=== PATIENT | male | born 1955 | race Caucasian/White ===

== ENCOUNTER → 2019-10-17 | Outpatient (CLI) | payer OTHER, MEDICARE | LOC: SJCVC 10:56 | DX: R93.1 Abnormal findings on diagnostic imaging of heart and coronary circulation (principal); R06.09 Other forms of dyspnea; I10 Essential (primary) hypertension; E78.5 Hyperlipidemia, unspecified; R73.02 Impaired glucose tolerance (oral); F17.200 Nicotine dependence, unspecified, uncomplicated; K21.9 Gastro-esophageal reflux disease without esophagitis; E66.9 Obesity, unspecified; Z79.899 Other long term (current) drug therapy; Z82.49 Family history of ischemic heart disease and other diseases of the circulatory system ==

== ENCOUNTER → 2019-11-02 | Outpatient (CLI) | payer OTHER, MEDICARE | LOC: SJCVCIMAG 08:07 | DX: I35.8 Other nonrheumatic aortic valve disorders (principal); I25.10 Atherosclerotic heart disease of native coronary artery without angina pectoris; I10 Essential (primary) hypertension ==

== ENCOUNTER 2019-12-03 17:35 | Emergency (ER) | payer OTHER, MEDICARE ==
[~2019-12-03] VITALS: Ht 170.2 cm; Wt 90.7 kg
[2019-12-03 19:23] VITALS: BP 142/78
== END 2019-12-03 19:23 | disposition home or self-care (01) ==
LOC: ER 17:35
DX: S01.01XA Laceration without foreign body of scalp, initial encounter (principal); Z87.891 Personal history of nicotine dependence; W22.8XXA Striking against or struck by other objects, initial encounter; Y93.89 Activity, other specified; Y92.89 Other specified places as the place of occurrence of the external cause; Y99.8 Other external cause status

== ENCOUNTER → 2020-01-04 | Outpatient (CLI) | payer OTHER, MEDICARE | LOC: SJCVCIMAG 09:19 | PROVIDERS: ATTEND Internal Medicine | DX: I65.23 Occlusion and stenosis of bilateral carotid arteries (principal); R93.1 Abnormal findings on diagnostic imaging of heart and coronary circulation; R06.09 Other forms of dyspnea; I10 Essential (primary) hypertension; E78.5 Hyperlipidemia, unspecified; R73.02 Impaired glucose tolerance (oral); F17.200 Nicotine dependence, unspecified, uncomplicated ==

== ENCOUNTER → 2020-07-16 | Outpatient (CLI) | payer OTHER, MEDICARE | LOC: SJCVC 11:27 | PROVIDERS: ATTEND Internal Medicine | DX: R94.31 Abnormal electrocardiogram [ECG] [EKG] (principal); R93.1 Abnormal findings on diagnostic imaging of heart and coronary circulation; R06.00 Dyspnea, unspecified; I11.9 Hypertensive heart disease without heart failure; E78.5 Hyperlipidemia, unspecified; R73.02 Impaired glucose tolerance (oral); K22.70 Barrett's esophagus without dysplasia; K21.9 Gastro-esophageal reflux disease without esophagitis; E66.9 Obesity, unspecified; F17.210 Nicotine dependence, cigarettes, uncomplicated; Z79.899 Other long term (current) drug therapy; Z72.89 Other problems related to lifestyle ==

== ENCOUNTER → 2020-08-02 | Outpatient (CLI) | payer OTHER, MEDICARE ==
[~2020-08-02] MED LIST: BYSTOLIC 5 MG5 MG PO; FISH OIL 1,2001 EAC8 PO; LANSOPRAZOLE30 MG PO; LISINOPRIL20 MG PO; NORVASC5 MG PO; PRAVASTATIN SOD80 MG PO; TRAZODONE HCL100 MG PO; VITAMIN D3125 MC1 PO; ZETIA10 MG PO
== END ==
LOC: LAB 09:39
PROVIDERS: ATTEND Specialist
DX: Z01.812 Encounter for preprocedural laboratory examination (principal); Z20.822 Contact with and (suspected) exposure to COVID-19

== ENCOUNTER → 2020-08-07 | Outpatient (CLI) | payer OTHER, MEDICARE ==
[~2020-08-07] VITALS: Ht 170.2 cm; Wt 80.7 kg
--- NOTE | 2020-08-12 12:50 | P ---
[facility] [place] [address] PROCEDURE REPORT Name: KELSEY HO Room #: REG BRITT Brito#: [id number] Admission: 08/07/20 Attend Phys: Elvis Rangel Discharge: Date of : 53 Report #: [id number] THIS REPORT FOR: cc: Michael Dunlap MD, Stanley P. MD McElhinney, Christian C. MD ~ DATE OF SERVICE: 08/07/2020 PROCEDURE PERFORMED: Upper endoscopy with biopsies. HISTORY OF PRESENT ILLNESS: The patient is a 65-year-old male with intermittent dysphagia and weight loss. He has had a poor appetite. He states he has lost approximately 33 pounds in the last several months. He is on Prevacid on a daily basis. Denies any significant heartburn. He does complain of early satiety, also some nausea and vomiting. He has a previous history of Perez's esophagus with low-grade dysplasia, who underwent esophageal ablation by my partner in the past. His last upper endoscopy was on 07/13/2013. This was after his ablation, biopsies near the GE junction were obtained. These biopsies were negative for Perez's esophagus. Recommendation on the path report was for followup in 6 months. No other upper endoscopies in our records are seen. Plan is for upper endoscopy today. DESCRIPTION OF PROCEDURE: The risks and benefits of the procedure were explained to the patient, those risks including but not limited to bleeding, perforation and the risk of sedation. He understood these risks and gave informed consent. Sedation was given using propofol per anesthesia. Next, using a standard Olympus upper endoscope, the scope was placed in the patient's mouth and advanced under direct vision through the esophagus, stomach and into the second portion of the duodenum. The larynx was normal in appearance. Proximal esophagus was normal. A large malignant appearing mass near obstructing was noted starting at 32 cm and extending to the GE junction at 40 cm. The tissue was very friable. I was able to pass the scope through this area with a mild resistance. Multiple biopsies were obtained. In the stomach on retroflexion, a large mass was noted in the gastric cardia and again at the GE junction, this was approximately 3 cm in size. This appears to be the same mass that involves the esophagus. Biopsies of the high cardia were also obtained. The gastric mucosa in the body and antrum were normal. The pylorus was normal and patent. The duodenal bulb, first and second portion were all normal. At this point, the scope was then withdrawn and the procedure terminated. The patient tolerated the procedure well. IMPRESSION: Large malignant-appearing, near obstructing mass in the mid to distal esophagus, also involving the gastric cardia ____ the esophagus was approximately 8 cm. Multiple biopsies were obtained in the esophagus as well as at the gastric cardia. [facility] [address] [place] [address] PROCEDURE REPORT Name: KELSEY HO Husam Room #: REG BRITT Brito#: [id number] Admission: 08/07/20 Attend Phys: Elvis Rangel Discharge: Date of : 53 Report #: [id number] RECOMMENDATIONS: 1. Await biopsy results. 2. We will proceed with CT scan of the chest, abdomen and pelvis. 3. We will consult Oncology for further recommendations and evaluation. Thank you for allowing me to participate in his care. <ELECTRONICALLY SIGNED> By: Elvis Rivera MD 08/12/20 1250 0947 1028 Elvis Rivera MD /nt
--- NOTE | 2020-08-13 12:07 | PATH ---
[facility] [address] [place] [address] PATHOLOGY RPT PROCEDURE Name: RHOAN LAW Room #: REG BRITT Brito#: [id number] Admission: 08/07/20 Date of : 53 Discharge: Report #: [id number] Path Case #: [id number] LCA Accession Number: [id number] . 01 Material submitted: . PART A: esophagus - BIOPSY ESOPHAGEAL MASS PART B: gastrointestinal site - BIOPSY GASTRIC CARDIA MASS . 01 Clinical history: . ESOPHAGEAL MASS REFLUX . 02 Diagnosis: A. Esophageal mass, endoscopic biopsy: - POORLY DIFFERENTIATED ADENOCARCINOMA. - Specialized columnar epithelium (gastric fundic-type mucosa) with intestinal metaplasia consistent with Perez's metaplasia present within the background. . B. Gastric mucosa, gastric cardia mass, endoscopic biopsy: - POORLY DIFFERENTIATED ADENOCARCINOMA. - Negative for Helicobactor pylori (properly controlled immunohistochemical stain performed on block B). (IUV:latasha; 08/12/2020) QMS 08/12/2020 1103 Local . 02 Comment: Examination of the "esophageal mass" and "gastric cardia mass" shows a poorly differentiated adenocarcinoma. Focal Perez's metaplasia is present within the background in the esophageal mass biopsy tissue. . Properly controlled immunohistochemical stains are performed on block A1. The tumor cells show no reactivity with p63 or p40. Strong membranous reactivity is identified with BerEP4. . Part A of this case was co-reviewed by Dr. Iris Westbrook, who concurs with my diagnosis. Findings of this case are conveyed to Dr. Dickson Rivera at approximately 10:30 a.m. on 08/12/2020. (IUV:latasha; 08/12/2020) . 02 Electronically signed: . Marely Meneses MD, Pathologist NPI- [id number] . 01 Gross description: . A. Received in formalin labeled "Rohan Law, biopsy esophageal mass" are multiple stinson-brown soft tissue fragments measuring in aggregate 2.[address] [address] PATHOLOGY RPT PROCEDURE Name: ROHAN LAW A Room #: REG [facility] Angel.#: [id number] Admission: 08/07/20 Date of : 53 Discharge: Report #: [id number] Path Case #: [id number] x 0.3 cm. The specimen is submitted entirely in A1. . B. Received in formalin labeled "Ani, Rohan biopsy gastric cardia mass" are multiple stinson-brown soft tissue fragments measuring in aggregate 0.7 x 0.2 x 0.2 cm. The specimen is submitted entirely in B1. ([facility]; 08/09/2020) GZA/GZA 08/12/2020 1055 Local . 02 Pathologist provided ICD-10: C15.9, C16.0, K22.70 . 02 CPT . 603726, 601523, L09808, F75606 Specimen Comment: A courtesy copy of this report has been sent to [phone] Specimen Comment: Report sent to Performed at: [address], [place] [id number] MD Yaya Henderson MD Phone: [phone] Performed at: [address] [id number] MD Marely Meneses MD Phone: [phone]
== END | disposition home or self-care (01) ==
LOC: GI 07:41
PROVIDERS: ATTEND Specialist
DX: R13.10 Dysphagia, unspecified (principal); R63.4 Abnormal weight loss; C15.9 Malignant neoplasm of esophagus, unspecified; C16.0 Malignant neoplasm of cardia; K22.8 Other specified diseases of esophagus; K21.9 Gastro-esophageal reflux disease without esophagitis; I10 Essential (primary) hypertension; E78.00 Pure hypercholesterolemia, unspecified; Z98.890 Other specified postprocedural states; Z79.899 Other long term (current) drug therapy; Z98.41 Cataract extraction status, right eye; Z98.42 Cataract extraction status, left eye
CPT/HCPCS: 62110; 62900

== ENCOUNTER → 2020-08-22 | Outpatient (CLI) | payer OTHER, MEDICARE | LOC: LAB 09:30 | PROVIDERS: ATTEND Radiology Diagnostic Radiology | DX: Z01.812 Encounter for preprocedural laboratory examination (principal); Z20.822 Contact with and (suspected) exposure to COVID-19 ==

== ENCOUNTER → 2020-08-27 | Outpatient (CLI) | payer OTHER, MEDICARE ==
[~2020-08-27] VITALS: Ht 170.2 cm; Wt 78.9 kg
[2020-08-27 10:31] VITALS: BP 124/84
[2020-08-27 13:55] VITALS: BP 106/71
== END | disposition home or self-care (01) ==
LOC: SPEC 09:49
PROVIDERS: ATTEND Internal Medicine Hematology & Oncology
DX: Z45.2 Encounter for adjustment and management of vascular access device (principal); C15.9 Malignant neoplasm of esophagus, unspecified; I10 Essential (primary) hypertension; E78.00 Pure hypercholesterolemia, unspecified; Z98.890 Other specified postprocedural states; Z79.899 Other long term (current) drug therapy

== ENCOUNTER → 2020-09-18 | Outpatient (CLI) | payer OTHER, MEDICARE | LOC: SJCVCIMAG 09:39 | PROVIDERS: ATTEND Internal Medicine | DX: I08.2 Rheumatic disorders of both aortic and tricuspid valves (principal); I10 Essential (primary) hypertension ==

== ENCOUNTER → 2020-10-02 | Outpatient (CLI) | payer OTHER, MEDICARE | LOC: RAD 09:56 | PROVIDERS: ATTEND Internal Medicine | DX: R91.1 Solitary pulmonary nodule (principal); C15.4 Malignant neoplasm of middle third of esophagus; R06.00 Dyspnea, unspecified; J84.9 Interstitial pulmonary disease, unspecified; I51.7 Cardiomegaly ==

== ENCOUNTER 2020-11-25 18:27 | Inpatient (IN) | payer OTHER, MEDICARE ==
[~2020-11-25] VITALS: Ht 170.2 cm; Wt 78.1 kg
[2020-11-25 18:31] VITALS: BP 129/78
[2020-11-25 19:09] LABS: CREATININE 1.5 mg/dL (0.7-1.3)
[2020-11-25 19:10] LABS: HEMATOCRIT 33.2 % (42.0-52.0); HEMOGLOBIN 10.1 gm/dL (14.0-18.0); MCH 27.6 pg (26.0-34.0); MCHC 30.4 g/dL (28.0-37.0); MCV 90.7 fL (80.0-100.0); PLATELET COUNT 151 thou/uL (150-400); RBC 3.66 mil/uL (4.50-6.00); RDW 22.1 % (10.5-14.5); WBC 21.9 thou/uL (4.0-11.0)
[2020-11-25 19:19] LABS: ALBUMIN 3.1 g/dL (3.4-5.0); TOTAL BILIRUBIN 0.6 mg/dL (0.2-1.0)
[2020-11-25 19:41] LABS: BE(vivo) -0.2 mmol/L (-2 to +3); HCO3 22.6 mmol/L (22.0-26.0); PCO2 30.4 mmHg (35.0-45.0); PO2 72.6 mmHg (80.0-100.0); pH 7.489 (7.360-7.450); sO2 95.9 % (92.0-98.0)
[2020-11-25 20:06] LABS: ABSOLUTE NEUTROPHILS 19.5 thou/uL (1.4-8.2); ANISOCYTOSIS 1+
[2020-11-25 21:42] VITALS: BP 116/60
[2020-11-25 22:02] VITALS: BP 142/80
[2020-11-25 22:10] VITALS: BP 130/84
[2020-11-26] VITALS (10 sets, daily range): BP systolic 101–137; BP diastolic 58–84
[2020-11-26 03:21] LABS: HEMATOCRIT 29.4 % (42.0-52.0); MCH 27.5 pg (26.0-34.0); MCHC 30.5 g/dL (28.0-37.0); MCV 90.3 fL (80.0-100.0); RBC 3.26 mil/uL (4.50-6.00); RDW 22.1 % (10.5-14.5); WBC 19.1 thou/uL (4.0-11.0)
[2020-11-26 03:45] LABS: ANION GAP 10 mmol/L (7-16); BUN 14 mg/dL (7-18); CALCIUM 8.1 mg/dL (8.5-10.1); CHLORIDE 105 mmol/L (98-107); CHOLESTEROL 115 mg/dL (<200); CO2 24 mmol/L (21-32); CREATININE 1.1 mg/dL (0.7-1.3); GLUCOSE 109 mg/dL (74-106); HDL CHOLESTEROL 38 mg/dL (>40); LDL CHOLESTEROL 64 mg/dL (<100); MAGNESIUM 1.7 mg/dL (1.8-2.4); SODIUM 139 mmol/L (136-145); TRIGLYCERIDE 66 mg/dL (<150); TROPONIN-I 0.24 ng/mL (<0.06); VLDL 13 mg/dL (<40)
[2020-11-26 04:13] LABS: SERUM ASSESSMENT Clear
--- NOTE | 2020-11-26 07:25 | EKG ---
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 : 1955 Requested By: Luis Frank Order Number: [id number] MD: Sudhir Patel Measurements Intervals [place] Rate: 107 P: 20 MD: 156 QRS: 120 QRSD: 88 T: -25 QT: 338 QTc: 451 Interpretive Statements Sinus tachycardia Ventricular premature complex Left posterior fascicular block Nonspecific T abnormalities, anterior leads Compared to ECG 08/04/2004 22:32:40 Ventricular premature complex(es) now present Left posterior fascicular block now present T-wave abnormality now present Sinus rhythm no longer present Intraventricular conduction delay no longer present Inferior Q waves no longer present Q waves no longer present Electronically Signed On 11-26-2020 7:25:21 CDT by Sudhir Patel [email or web address] <ELECTRONICALLY SIGNED> By: Sudhir Patel MD, FAC 11/26/20 0725 42 42 Sudhir Patel MD, [facility] /EPI
[2020-11-26] MEDS ORDERED: REMERON15 M2 PO (07:57)
--- NOTE | 2020-11-26 07:59 | NUR ---
RECEIVED REPORT FROM BAM LOPEZ RN.PT ARRIVED TO ROOM 208 AROUND 2215.PT A/O X 4.UP WITH STANDBY ASSIST.ON NON REBREATHER.RECEIVES BREATHING TREATMENT.DENIES PAIN.C/O SOB ALL THE TIME.MONITOR SHOWS SR.POC CONTINUED.
--- NOTE | 2020-11-26 09:37 | NUR ---
ASSUMED PT CARE AT 0700, PT IN BED RESTING. ASSESSMENT PERFORMED AT 0845. PT VOICES NO CONCERNS AT THIS TIME. VSS. WILL CONTINUE TO MONITOR AND FOLLOW POC.
--- NOTE | 2020-11-26 09:50 | 2DMMODE ---
[facility] [place] [address] 2 D/M-MODE ECHOCARDIOGRAM Name: KELSEY HO Room #: 208-P ADM IN M.R.#: [id number] Admission: 11/25/20 Attend Phys: Edin Taylor Elba Discharge: Date of : 53 Report #: [id number] THIS REPORT FOR: cc: Michael Dunlap MD, Stanley P. MD Lundgren, Craig H. MD [facility] ~ APPROVED REPORT Study performed: 11/26/2020 09:11:15 EXAM: Limited 2D, Doppler, and color-flow Echocardiogram Patient Location: Bedside Room #: 208 Status: routine BSA: 1.96 HR: 97 bpm BP: 137/84 mmHg Rhythm: Sinus arrhythmia/PVCs Other Information Study Quality: Good Indications Dyspnea, elevated troponin, ?CHF. 2D Dimensions RVDd: 49.67 mm Aortic Valve AoV Peak Hong.: 1.77 m/s AO Peak Gr.: 12.48 mmHg AO Mean Gr.: 7.20 mmHg AO V2 Mean: 1.30 m/s AO V2 VTI: 32.35 cm Tricuspid Valve TR Peak Hong.: 3.80 m/s RAP Estimate: 15.00 mmHg TR Peak Gr.: 57.00 mmHg PA Pressure: 72.00 mmHg Left Ventricle The left ventricle is normal size. Flattened septum consistent with right ventricular pressure overload. There is normal left ventricular wall thickness. Left ventricular systolic function is normal. LVEF is 55%. Mild diastolic dysfunction [facility] [address] [place] [address] 2 D/M-MODE ECHOCARDIOGRAM Name: KELSEY HO Room #: 208-P ADM IN M.R.#: [id number] Admission: 11/25/20 Attend Phys: Edin Miles Discharge: Date of : 53 Report #: [id number] Right Ventricle Right ventricle is moderately dilated. Right ventricle is hypokinetic. Atria The left atrium size is normal. Right atrium is moderately dilated. Aortic Valve Aortic valve is calcified, trileaflet. No aortic regurgitation is present. There is no aortic valvular stenosis. Mitral Valve The mitral valve is normal in structure. There is no mitral valve regurgitation noted. No evidence of mitral valve stenosis. Tricuspid Valve The tricuspid valve is normal in structure. Moderate tricuspid regurgitation. Estimated pulmonary artery pressure of 70mmHg. Pulmonic Valve The pulmonary valve is normal in structure. There is no pulmonic valvular regurgitation. Great Vessels The aortic root is normal in size. IVC is dilated and collapses <50% with inspiration. Pericardium There is no pericardial effusion. <Conclusion> Left ventricular systolic function is normal. Flattened septum consistent with right ventricular pressure overload. LVEF is 55-60%. Mild diastolic dysfunction Right atria and ventricle are moderately dilated. RV hypokinesis Aortic valve is calcified, trileaflet. No aortic regurgitation or stenosis. The mitral valve is normal in structure. No mitral valve regurgitation. Moderate tricuspid regurgitation. Estimated pulmonary artery pressure [facility] [address] [place] [address] 2 D/M-MODE ECHOCARDIOGRAM Name: KELSEY HO Husam Room #: 208-P [facility] IN .R.#: [id number] Admission: 11/25/20 Attend Phys: Edin Miles Discharge: Date of : 53 Report #: [id number] of 70mmHg. There is no pericardial effusion. <ELECTRONICALLY SIGNED> By: Gregory Catherine MD, FACC 11/26/2049 8 8 Gregory Catherine MD, FACC /INF
--- NOTE | 2020-11-26 11:49 | NUR ---
PT SITTING ON SIDE OF BED, RESPIRATORY SWITCHING PT FROM NON REBREATHER TO HIGH FLOW NASAL INTERFACE. RT CONSIDERING BIPAP. DR HEART HAD A LENGTHY CONVERSATION WITH PATIENT ABOUT RESPIRATORY NEEDS AND PTS WISHES ON RESPIRATORY SUPPORT. PT ASSESSMENT UNCHANGED, PATIENT IS STILL LABORED BREATHING. PT VOICES NO FUTHER CONCERNS AT THIS TIME. VSS. WILL CONTINUE TO MONITOR AND FOLLOW POC.
--- NOTE | 2020-11-26 12:20 | NUR ---
GAVE REPORT TO MADDI JORGENSEN IN ICU. ICU UNABLE TO TAKE PATIENT AT THIS TIME DUE TO NURSE/PATIENT OFF THE UNIT. JOSLYN RN WILL CALL WHEN READY TO TAKE PATIENT. PT NOTIFIED OF PATIENT TRANSFER AND VOICES NO CONCERNS AT THIS TIME.
--- NOTE | 2020-11-26 13:21 | NUR ---
Patient admits with SOA. He has oxygen at home. He has esophageal cancer Stage 4. Unable to visit with patient for assessment as patient is SOA increase oxygen liters and in process of transfer to ICU. Casemgt following for dc planning.
--- NOTE | 2020-11-26 16:52 | NUR ---
TOOK REPORT FROM [facility] IN CCU AT 1230 PT ARRIVED IN ICU AT [address] ON BIPAP
[2020-11-27] VITALS (22 sets, daily range): BP systolic 93–120; BP diastolic 56–73
--- NOTE | 2020-11-27 04:32 | NUR ---
PT IS PLEASANT AND COOPERATIVE; WHEN DISCUSSING NEED FOR PT TO TELL RN IF HE STARTS TO FEEL WORN OUT FROM LABORED BREATHING, PT DID NOT MAKE EYE CONTACT WITH RN, BUT DID ACKNOWLEDGE AND AGREE TO COMMUNICATE. THIS RN REASSURED PT THAT ADVOCATING FOR HIM IS FIRST PRIORITY, AND THAT WE WOULD TRY TO AVOID INTUBATION, BUT THAT COMMUNICATION ABOUT NEEDS/WANTS FOR EXTREME MEASURES WAS IMPORTANT, PT STATED UNDERSTANDING. RESTING QUIETLY FOR MUCH OF SHIFT. WHEN RESTING, RR 20-25, SATS >95% ON FI02 70%. WHEN REPOSITIONING, PT DESATS TO 84%, REQUIRING SEVERAL MINUTES TO RECOVER.
[2020-11-27 04:47] LABS: HEMOGLOBIN 8.4 gm/dL (14.0-18.0); MCH 27.9 pg (26.0-34.0); MCV 89.7 fL (80.0-100.0); RBC 3.01 mil/uL (4.50-6.00); WBC 14.1 thou/uL (4.0-11.0)
[2020-11-27 05:04] LABS: ALBUMIN 2.7 g/dL (3.4-5.0); CALCIUM 8.7 mg/dL (8.5-10.1); CREATININE 1.1 mg/dL (0.7-1.3); PHOSPHORUS 5.1 mg/dL (2.5-4.9); POTASSIUM 3.9 mmol/L (3.5-5.1); TROPONIN-I 0.11 ng/mL (<0.06)
--- NOTE | 2020-11-27 09:06 | NUR ---
BPCI letter and preferred provider list provided to patient chart, unable to speak to patient, lives in home setting
--- NOTE | 2020-11-27 09:10 | HC ---
[facility] [place] [address] CONSULTATION Name: KELSEY HO Room #: 236-P ADM IN M.R.#: [id number] Admission: 11/25/20 Attend Phys: Edin Marina Discharge: Date of : 53 Report #: [id number] THIS REPORT FOR: cc: Michael Dunlap MD, Stanley P. MD McKittrick, Richard James MD ~ DOC #: [id number] cc: Edison Haskins MD, Parish Aquino MD, Elvis Rivera MD, Michael Dunlap MD, Gregory Catherine MD [facility] Jose Fernandes MD HISTORY OF PRESENT ILLNESS: The patient is a very pleasant 65-year-old gentleman who was diagnosed with adenocarcinoma of the GE junction by Elvis Rivera on 08/07/2020. This was HER-2 positive. The patient began FOLFOX chemotherapy in late 08/2020 when he was found to be HER-2 positive. Herceptin was added. The patient has been responding. Because of thrombocytopenia, the oxaliplatin was held about 11/05. His most recent CAT scans done recently have showed responding disease, but there was a concern about ground glass opacities. The patient had a cough. He was going to see his family doctor and also he was to see Pulmonary as an outpatient. Unfortunately, he has been admitted. The patient denies any fevers. Does have a cough, slightly productive. No headache, not spit up any blood. No abdominal pain, no blood in his urine or stool. No diarrhea, no constipation, no skin rash. PAST MEDICAL HISTORY: Notable for the history of HER-2 positive GE junction cancer also dyslipidemia, also GERD, also Perez's esophagus and also hypertension. FAMILY HISTORY: Mother had diabetes and heart disease. Father, heart disease, diabetes and colon cancer. Brother with diabetes. Another brother with heart disease. Maternal grandfather, cancer. Paternal grandmother, stroke. ____, heart disease. ____, diabetes. SOCIAL HISTORY: The patient is originally from [place]. 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 They would bring equipment brought in, he would check it out at the warehouse to be used at a later date. He has a , Ana. His PCP is Dr. Michael Dunlap, also he sees Dr. Gregory Catherine and Dr. Elvis Rivera. PHYSICAL EXAMINATION: GENERAL: The patient appears his stated age. VITAL SIGNS: Height is 5 feet 7, 170.2 cm, weight is 186 pounds or 84.6 kilograms. Blood pressure is 137/84, O2 sat is 97%, pulse 87, respirations 18, temperature 97.3. Note that he is currently on a nonrebreather at 15 liters per minute. [facility] [address] [place] [address] CONSULTATION Name: KELSEY HO Room #: 236-P [facility] IN M.R.#: [id number] Admission: 11/25/20 Attend Phys: Edin Marina Discharge: Date of : 53 Report #: [id number] MEDICATIONS: At this time in the hospital currently include furosemide 40 daily, potassium chloride 20 mEq daily, trazodone 100 at bedtime, vancomycin 1250 mg IV q. 12, Nebivolol 5 mg daily, methylprednisolone 40 b.i.d., heparin 5000 b.i.d. subcutaneously, budesonide 0.5 respiratory therapy b.i.d., pantoprazole 40 daily, nitroglycerin p.r.n., Zosyn 3.375 grams IV q. 8, ipratropium, albuterol q. 4 h respiratory therapy, Tylenol p.r.n., Zofran p.r.n. IMAGING: Done includes a CTA chest done yesterday that talks about diffuse bilateral interstitial pulmonary opacities, which may represent extensive lymphangitic spread of tumor. There is also mention of superimposed pulmonary edema or multifocal infection could also be considered. Small to moderate dependent layering pleural effusions. Note that this was not compared to previous CAT scans just to the previous chest x-ray earlier in the day. ASSESSMENT AND PLAN: 1. 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 Note that oxaliplatin has been held due to thrombocytopenia. 2. Respiratory failure with CAT scan worrisome for inflammatory/infectious or neoplastic changes. Await Pulmonary's input. Last CAT scan from ____ for comparison. Note the anti-infectives have already been begun. We will defer to others. 3. Hypertension. Meds per others. 4. Gastroesophageal reflux disease and Perez's, acid blockers per others. 5. History of tobacco dependence. Encouraged continued cessation. 6. Lipids. Statin as needed per others. 7. Respiratory failure. We will follow with you. MD BERNARDO Reynolds/KANIKA/PAUL <ELECTRONICALLY SIGNED> By: Jose Fernandes MD 11/27/20 0910 0738 1234 Jose Fernandes MD /charlee
--- NOTE | 2020-11-27 11:20 | HC ---
[facility] [place] [address] CONSULTATION Name: KELSEY HO Room #: 236-P [facility] IN ..#: [id number] Admission: 11/25/20 Attend Phys: Edin Marina Discharge: Date of : 53 Report #: [id number] THIS REPORT FOR: cc: Michael Dunlap MD, Stanley P. MD Barry, Joseph W. MD ~ DOC #: [id number] Deacon Phillip MD DATE OF SERVICE: 11/26/2020 INFECTIOUS DISEASE CONSULTATION ATTENDING PHYSICIAN: Dr. Haskins. REASON FOR EVALUATION: Severe bilateral pneumonitis complicated by respiratory failure, ARDS. HISTORY OF PRESENT ILLNESS: Chart reviewed and the patient examined. This is a 65-year-old gentleman with known stage IV esophageal carcinoma, currently undergoing chemotherapy. He has completed 6 courses, was scheduled to have a 7th treatment today. He notes he has had roughly 3-week history of progressive dyspnea. He notes decreased exercise tolerance. He has had a cough, most recently has been nonproductive, was initiated on supplemental oxygen per nasal cannula; however, the day prior to admission was found to have a saturation of 77%. It is not clear that he has had significant fevers or chills. He notes his appetite has been relatively stable. Denies significant GI-related complaints. On questioning, he has not had exposure history. Nobody has been ill. He lives with his . He has 2 dogs. No recent travel. He did go to [place] for a month back in July and July. Since his admission, he has had clinical deterioration and is planned to transfer to the intensive care unit. He is currently on high flow and concentration oxygen at ____ L per minute, FiO2 of 70%. He is still generally lucid, although he becomes breathless with even speaking. Evaluation has been undertaken. Chest x-ray shows extensive diffuse interstitial pulmonary opacities with consolidation and peripheral mid to lower right lobe, left base. ProBNP elevated at 4863. Lactic acid of 4.5 initially, repeat was 1.2. ABG showed marked hypoxemia with pO2 of 72.6 on 100% FiO2. Coronavirus testing was negative. D-dimer was elevated at 3.58, prompted CT of the chest showed no evidence of pulmonary emboli, again confirmed diffuse nature of interstitial-type opacities. There is question of extensive lymphangitic spread, was found to be markedly leukocytotic with a white count of 21.9. Did have absolute lymphocyte count of 1100. Blood cultures collected at time of admission are sterile thus far. Echo without evidence of vegetation. Influenza antigen testing was negative. ALLERGIES: None known. [address] [address] CONSULTATION Name: GEORGIAKELSEY Husam Room #: 236-P [facility] IN M.R.#: [id number] Admission: 11/25/20 Attend Phys: Edin Marina Discharge: Date of : 53 Report #: [id number] CURRENT MEDICATIONS: Include potassium, furosemide, Bactrim 2 tabs p.o. b.i.d., trazodone, methylprednisolone 62.5 mg t.i.d., vancomycin, Zosyn, furosemide. PAST MEDICAL HISTORY: As described above, stage IV esophageal carcinoma, undergoing chemotherapy. History of Perez's esophagus, history of hypertension, high cholesterol, previous history of gastrointestinal hemorrhage. SOCIAL HISTORY: Former smoker, occasional ethanol. No illicit drug use. FAMILY HISTORY: Noncontributory. REVIEW OF SYSTEMS: Otherwise unrevealing. PHYSICAL EXAMINATION: GENERAL: He appears chronically ill, undernourished, moderate distress secondary to dyspnea. He is generally lucid. VITAL SIGNS: Temperature 97.1, pulse 100, respirations 16, blood pressure 130/77. SKIN: Warm, dry. HEENT: Normocephalic. Extraocular muscles intact. He has got the high-flow nasal cannula in place. NECK: Supple. LUNGS: Scattered coarse breath sounds. HEART: Borderline tachycardic. Appears to be regular. I do not appreciate a murmur. ABDOMEN: Mildly distended, slightly firm, nontender. EXTREMITIES: No cyanosis. SKIN: No apparent rash. GENITOURINARY AND RECTAL: Deferred. LABORATORY DATA: As described above, cultures sterile thus far. Most recent electrolytes, sodium 139, potassium 4.0, chloride 105, bicarbonate is 24, anion gap of 10. BUN and creatinine of 14 and 1.1. Glucose of 109. CBC: White count of 19.1, H and H 9.0 and 29.4, platelets of 106. Lactic acid then repeat down from 4.5, now 1.2. Liver functions were generally unremarkable except for an alkaline phosphatase elevated at 217, albumin of 3.1, total protein. DIAGNOSTIC DATA: CTA of the chest noted. ASSESSMENT: 1. Severe bilateral interstitial pneumonitis, complicated by hypoxemia and respiratory failure with evidence of acute respiratory distress syndrome with a subacute presentation. 2. Esophageal carcinoma, stage IV, undergoing chemotherapy. 3. Hypertension. [facility] [address] [place] [address] CONSULTATION Name: KELSEY HO Room #: 236-P ADM IN M.R.#: [id number] Admission: 11/25/20 Attend Phys: Edin Brandon Laina Discharge: Date of : 53 Report #: [id number] 4. Hyperlipidemia. PLAN: We will continue empiric broad-spectrum antimicrobial therapy. He is on Bactrim due to concern about possible pneumocystis. We will add quinolone to cover atypicals as well. We will go ahead and check some additional diagnostic testing to evaluate. At this point, he remains critically ill. It is certainly not clear whether he would have a progressive deterioration prior to improvement. Agree with ICU level care. In addition to usual infectious concerns consider opportunistic infections as well. MD DALE Alvarez/HUGO/CORTEZ <ELECTRONICALLY SIGNED> By: Deacon Phillip MD 11/27/20 1120 1245 2256 Deacon Phillip MD /nt
--- NOTE | 2020-11-27 14:43 | EKG ---
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 : 1955 Requested By: Gregory Catherine Order Number: [id number] MD: Sudhir Patel Measurements Intervals [place] Rate: 91 P: 22 MI: 150 QRS: 110 QRSD: 103 T: -43 QT: 407 QTc: 501 Interpretive Statements Sinus rhythm Ventricular premature complex Probable left atrial enlargement Right axis deviation Abnormal T, consider ischemia, diffuse leads Prolonged QT interval Compared to ECG 11/25/2020 18:43:41 Right-axis deviation now present Possible ischemia now present Prolonged QT interval now present Sinus tachycardia no longer present T-wave abnormality still present Electronically Signed On 11-27-2020 14:43:43 CDT by Sudhir Patel [email or web address] <ELECTRONICALLY SIGNED> By: Sudhir Patel MD, [facility] 11/27/20 [id number] Sudhir Patel MD, [facility] /EPI
[2020-11-28] VITALS (20 sets, daily range): BP systolic 83–120; BP diastolic 36–71
[2020-11-28 05:15] LABS: HEMATOCRIT 25.6 % (42.0-52.0); MCH 28.3 pg (26.0-34.0); MCHC 31.2 g/dL (28.0-37.0); MCV 90.5 fL (80.0-100.0); PLATELET COUNT 105 thou/uL (150-400); RBC 2.83 mil/uL (4.50-6.00); RDW 22.1 % (10.5-14.5); WBC 16.6 thou/uL (4.0-11.0)
--- NOTE | 2020-11-28 05:24 | NUR ---
PT RESTING QUIETLY, ORIENTED, DENIES PAIN. SR, PVCS, BP STABLE, URINE OP LOW BUT REMAINS ADEQUATE. SATS 93-94% ON 70% FI02, LOW RESERVE, DESATS WITH MVEMENT.
[2020-11-28 05:27] LABS: ALBUMIN 2.5 g/dL (3.4-5.0); CALCIUM 8.8 mg/dL (8.5-10.1); CREATININE 1.1 mg/dL (0.7-1.3); POTASSIUM 4.4 mmol/L (3.5-5.1); TOTAL BILIRUBIN 0.3 mg/dL (0.2-1.0); TOTAL PROTEIN 5.7 g/dL (6.4-8.2)
[2020-11-28 09:00] LABS: ABSOLUTE NEUTROPHILS 16.1 thou/uL (1.4-8.2)
[2020-11-28 09:01] LABS: ANISOCYTOSIS 3+; OVALOCYTES FEW; TEARDROPS OCCASIONAL
--- NOTE | 2020-11-28 09:14 | NUR ---
Nutrition: pt continues on BIPAP. Possible need for TPN per rounds. REC standard TPN to reach 85 mL/hr goal rate.
--- NOTE | 2020-11-28 09:24 | NUR ---
RN CALLED PHARMACIST PER DR. HEART ORDER TO HAVE ALL POSSIBLE PO MEDS CHANGED TO IV OR IV PUSH ROUTE.
--- NOTE | 2020-11-28 16:45 | NUR ---
HOSPITALIST ORDERED TPN TO START TONIGHT, PRINTER SLOTTER FEEDER SUGGESTED WE TRY PLACING A DOBHOFF INSTEAD AND STARTING TUBE FEEDINGS. RN CALLED HOSPITALIST AND WITH SUGGESTION AND HE STATED NO. DISCUSSED ALTERNATIVES TO TPN DUE TO RISK OF FLUID OVERLOAD, NO NEW ORDERS FROM HOSPITALIST RECEIVED AND ORIGINAL ORDER FOR TPN STILL STANDS. PRINTER SLOTTER FEEDER WAS UPDATED BY RN.
--- NOTE | 2020-11-28 18:31 | NUR ---
PT REMAINED ON BIPAP THIS SHIFT WITH VSS. PT WAS NOT IN ANY DISTRESS AND REMAINED CALM ENTIRE SHIFT. PT IS ABLE TO TAKE A FEW PILLS WITH SMALL SIP OF WATER HOWEVER PT DOES DROP HIS O2 SAT QUICKLY WITH ANY ACTIVITY. PT'S ARRIVED TODAY AND SPOKE AT LENGTH WITH DR. HEART AND HER QUESTIONS WERE ANSWERED. PT IS TO START TPN TONIGHT PER HOSPITALIST. PT DENIES PAIN.
[2020-11-29] VITALS (26 sets, daily range): BP systolic 94–118; BP diastolic 50–69
[2020-11-29 06:23] LABS: ALBUMIN 2.6 g/dL (3.4-5.0); CALCIUM 8.6 mg/dL (8.5-10.1); CREATININE 1.2 mg/dL (0.7-1.3); MAGNESIUM 2.4 mg/dL (1.8-2.4); POTASSIUM 4.5 mmol/L (3.5-5.1); TOTAL BILIRUBIN 0.2 mg/dL (0.2-1.0); TOTAL PROTEIN 5.7 g/dL (6.4-8.2)
--- NOTE | 2020-11-29 06:46 | NUR ---
PT REMAINS ON BIPAP THRU THE NIGHT. PATIENT CONTINUES TO DESAT WITH ACTIVITY. PATIENT RESPONDS APPROPRIATLY AND VERBALIZES UNDERSTANDING OF CURRENT POC.
[2020-11-29 07:37] LABS: ABSOLUTE NEUTROPHILS 12.9 thou/uL (1.4-8.2); BASOPHILS 0.2 % (0.0-2.0); HEMATOCRIT 26.9 % (42.0-52.0); HEMOGLOBIN 8.3 gm/dL (14.0-18.0); MCV 90.2 fL (80.0-100.0); MONOCYTES 5.6 % (1.0-8.0); PLATELET COUNT 109 thou/uL (150-400); POLYS 92.2 % (36.0-66.0); RBC 2.98 mil/uL (4.50-6.00); RDW 21.3 % (10.5-14.5)
[2020-11-29 10:15] LABS: ANISOCYTOSIS 2+; PLATELET ESTIMATE NORMAL
--- NOTE | 2020-11-29 16:37 | NUR ---
Chart review, discussed during am rounds and los. already been here for visit and now has friends visiting. Cont. to require BIPAP, TPN for nutrition. No anticipated dc through weekend. Will cont. following as needed for dc needs.
--- NOTE | 2020-11-29 18:14 | NUR ---
PATIENT HAS BEEN TOLERATING TITRATION OF BIPAP/DECREASE IN OXYGENATION NEEDS. WAS AT 70% FIO2 THIS AM, NOW AT 55% FIO2. PATIENT IS ABLE TO REMOVE MASK FOR SHORT BREAK TO SIP WATER WITHOUT DESATTING, AND IS NOT SHOWING MAJOR SIGNS OF EXERTION WHEN TALKING OR MOVING IN BED. PATIENT IS HEMODYNAMICALLY STABLE, WILL CONTINUE TO MONITOR.
[2020-11-30] VITALS (24 sets, daily range): BP systolic 97–123; BP diastolic 58–73
[2020-11-30 05:46] LABS: CALCIUM 9.1 mg/dL (8.5-10.1); MAGNESIUM 2.4 mg/dL (1.8-2.4); PHOSPHORUS 3.5 mg/dL (2.6-4.7); POTASSIUM 4.7 mmol/L (3.5-5.1)
--- NOTE | 2020-11-30 07:27 | NUR ---
PATIENT APPEARS COMFORTABLE ON BIPAP. SPOKE WITH RN ABOUT PUTTING PATIENT ON OPTFLOW ONCE PATIENT AWAKES. FIO2 ON BIPAP IS 55% RT WILL TRY TO TITRATE THE PT. WHEN MORE AWAKE. ptS. SAT 94% ON 55% OXYGEN
--- NOTE | 2020-11-30 11:43 | NUR ---
PATIENT CURRENTLY ON OPTFLOW 90% / 55L PATIENT DESAT'S QUICKLY STATING HE FORGETS TO BREATHE THOROUGH HIS NOSE. PATIENT HAS HIS OWN PULSE OX. PATIENT DOES SELF OXYGEN CHECKS. PATIENT HAS DESATED TO 81% AND TAKES AWHILE TO RECOVER. PATIENT REFUSED TO GET BACK ON BIPAP WHEN HE DESATS.
[2020-12-01] VITALS (24 sets, daily range): BP systolic 105–129; BP diastolic 54–73
[2020-12-01 05:26] LABS: HEMATOCRIT 27.9 % (42.0-52.0); MCH 28.3 pg (26.0-34.0); MCHC 32.4 g/dL (28.0-37.0); MCV 87.5 fL (80.0-100.0); PLATELET COUNT 110 thou/uL (150-400); RBC 3.18 mil/uL (4.50-6.00); RDW 20.5 % (10.5-14.5); WBC 12.7 thou/uL (4.0-11.0)
[2020-12-01 05:54] LABS: ALBUMIN 2.6 g/dL (3.4-5.0); CALCIUM 8.6 mg/dL (8.5-10.1); CREATININE 0.9 mg/dL (0.7-1.3); MAGNESIUM 2.3 mg/dL (1.8-2.4); POTASSIUM 4.7 mmol/L (3.5-5.1); TOTAL BILIRUBIN 0.4 mg/dL (0.2-1.0); TOTAL PROTEIN 5.6 g/dL (6.4-8.2)
--- NOTE | 2020-12-01 06:42 | NUR ---
12/01/20 PATIENT HAS HAD HI ALVIN NC AT 90% WITH VENTI MASK TO HELP WITH MOUTH BREATHING TO MAINTIAN O2 SAT WHILE SLEEPING. IF PATIENT MOVES MUCH OR REMOVES MASK FOR A SIP OF WATER O2 SAT DROPS INTO THE 70'S AND TAKES SEVERAL MINUTES TO RECOVER BACK UP TO THE LOW 90S WITH COACHING TO ENCOURAGE HIM TO BREATH IN THROUGH NOSE. DR CAN WAS OK TO LEAVE BI PAP OFF OVER THE NIGHT.
[2020-12-01 07:55] LABS: ABSOLUTE NEUTROPHILS 11.4 thou/uL (1.4-8.2); METAMYELOCYTES 2 %; MYELOCYTES 3 %
[2020-12-01 07:56] LABS: ANISOCYTOSIS 2+; OVALOCYTES FEW; TEARDROPS OCCASIONAL
--- NOTE | 2020-12-01 19:35 | NUR ---
PATIENT HAD INCREASED OXYGEN DEMANDS, BEGAN ON OPTIFLOW, RESPIRATORY THERAPTIST ATTEMPTED TO TITRATE DOWN, BUT WAS UNABLE. WHEN AT 100% FIO2 AND 55 LITERS, MAINTAINED SATS IN LOW 80S, BIPAP PLACED. HAS REMAINED ON BIPAP FOR DURATION OF AM SHIFT. VITALS OTHERWISE STABLE, WILL CONTINUE TO MONITOR.
[2020-12-02] VITALS (121 sets, daily range): BP systolic 65–144; BP diastolic 11–84
--- NOTE | 2020-12-02 04:18 | NUR ---
AROUND 0330 PT WAS TAKNE TO CT FOE CHEST SCAN, UNEVENTFUL TRIP TO RADIOLOGY AND BACK. FRESH BED MADE UP WHILE OUT OF BED.
[2020-12-02 04:25] LABS: CALCIUM 9.1 mg/dL (8.5-10.1); CREATININE 0.9 mg/dL (0.7-1.3); MAGNESIUM 2.4 mg/dL (1.8-2.4); PHOSPHORUS 3.2 mg/dL (2.6-4.7); POTASSIUM 4.7 mmol/L (3.5-5.1)
--- NOTE | 2020-12-02 06:45 | NUR ---
PT REMAINS ON 100% NON REBREATHER SINCE BACK FROM CT SCAN, O2 SAT 93%, HOWEVER O2SAT WILL DROP TO LOW 80'S WITH COUGHING AND WILL TAKE 5-10 MIN TO RECOVER. PATIENT MAY NEED TO GO BACK ON BIPAP SOON. PT HAS BEEN NPO PRIOR TO MIDNIGHT, IN PREERATION FOR POSSIBLE BRONCHOSCOPY TODAY.
--- NOTE | 2020-12-02 13:43 | NUR ---
RT WAS AT BEDSIDE WITH DR HEART FOR A BRONCH. DR PINEDA CALLED TO [facility] TO ASSIST WITH PATIENT. LAVAGE WAS COLLECTED AND SENT TO LAB. PATIENT WAS THEN INTUBATED AT 1315 FOR POSSIBLE TE FISTULA. VENT SETTINGS WERE GIVEN BY DR HEART AND PATINET WAS PLACED ON VENTILATOR
--- NOTE | 2020-12-02 19:25 | NUR ---
PATIENT HAD BRONCOSCOPY TODAY, IN WHICH THERE WAS A CONCERN FOR A FISTULA. PATIENT NEEDED INTUBATED FOR AIRWAY PROTECTION. LEVO WAS STARTED FOR HYPOTENSION DURING BRONCH, PATIENT WAS MAXED ON PROPOFOL. PLAN FOR AN EGD ON 12/03 TO EVALUATE FURTHER.
[2020-12-03] VITALS (67 sets, daily range): BP systolic 91–159; BP diastolic 49–88
[2020-12-03 08:30] LABS: PCO2 48.9 mmHg (35.0-45.0); pH 7.347 (7.360-7.450)
[2020-12-03 08:31] LABS: HCO3 26.2 mmol/L (22.0-26.0); PO2 110.4 mmHg (80.0-100.0)
--- NOTE | 2020-12-03 09:53 | NUR ---
0747- RN SPOKE WITH PT'S NAYELY AND OBTAINED CONSENT FOR EGD WHICH IS SCHEDULED FOR 0800 THIS AM. CONSENT WAS OBTAINED BY THIS RN AND A SECOND RN VIA TELEPHONE VERBAL CONSENT FROM . PT UPDATE GIVEN AND QUESTIONS ANSWERED. 0945- EGD IS RESCHEDULED FOR 1430. PT'S CALLED BY RN AND UPDATED ON PROCEEDURE TIME.
--- NOTE | 2020-12-03 17:20 | NUR ---
1720- RN SPOKE WITH NAYELY VIA TELEPHONE AND GAVE PT UPDATE POST EGD.
--- NOTE | 2020-12-03 19:07 | NUR ---
PT REMAINS VENTILATED, LEVOPHED TURNED OFF TODAY. PT HAD EGD WITH NO INTERVENTION. PT IS SCHEDULED TO HAVE BRONCH IN AM. CONSENT SIGNED AND ON CHART.
[2020-12-04] VITALS (15 sets, daily range): BP systolic 98–121; BP diastolic 55–67
[2020-12-04 04:25] LABS: HEMATOCRIT 28.3 % (42.0-52.0); HEMOGLOBIN 8.9 gm/dL (14.0-18.0); MCHC 31.6 g/dL (28.0-37.0); MCV 88.7 fL (80.0-100.0); RBC 3.19 mil/uL (4.50-6.00); RDW 20.9 % (10.5-14.5)
[2020-12-04 04:32] LABS: BE(vivo) 2.6 mmol/L (-2 to +3); HCO3 27.6 mmol/L (22.0-26.0); PCO2 44.2 mmHg (35.0-45.0); PO2 124.2 mmHg (80.0-100.0); pH 7.413 (7.360-7.450); sO2 98.5 % (92.0-98.0)
[2020-12-04 04:44] LABS: CREATININE 0.6 mg/dL (0.7-1.3); POTASSIUM 4.5 mmol/L (3.5-5.1)
--- NOTE | 2020-12-04 09:38 | NUR ---
ASSUMED CARE OF PT AT 0700 DR. LAW AT BEDSIDE AT 0815, NO NEW ORDERS GIVEN
--- NOTE | 2020-12-04 11:52 | NUR ---
If ok with GI, Dr Branch would like to trial enteral nutrition: recommend vital HP to start 30ml/hr and progress to goal of 60ml/hr
--- NOTE | 2020-12-04 16:54 | NUR ---
LT IJ PLACED FOR MORE ACCESS AND TPN
[2020-12-05] VITALS (24 sets, daily range): BP systolic 95–155; BP diastolic 50–85
[2020-12-05 04:39] LABS: CALCIUM 9.2 mg/dL (8.5-10.1); CREATININE 0.6 mg/dL (0.7-1.3); POTASSIUM 4.6 mmol/L (3.5-5.1)
[2020-12-05 04:50] LABS: HEMATOCRIT 29.1 % (42.0-52.0); HEMOGLOBIN 9.3 gm/dL (14.0-18.0); MCH 28.4 pg (26.0-34.0); MCHC 32.1 g/dL (28.0-37.0); MCV 88.4 fL (80.0-100.0); RBC 3.29 mil/uL (4.50-6.00); RDW 20.7 % (10.5-14.5); WBC 9.4 thou/uL (4.0-11.0)
[2020-12-05 04:55] LABS: BE(vivo) 4.1 mmol/L (-2 to +3); PCO2 44.9 mmHg (35.0-45.0); PO2 72.9 mmHg (80.0-100.0); pH 7.428 (7.360-7.450); sO2 94.9 % (92.0-98.0)
--- NOTE | 2020-12-05 12:06 | NUR ---
chart review. remains on vent support, tpn for nutritional support. family not at bedside. BPCI. will cont following as needed for dc needs.
[2020-12-05 16:47] LABS: BE(vivo) 5.1 mmol/L (-2 to +3); HCO3 29.5 mmol/L (22.0-26.0); PCO2 42.6 mmHg (35.0-45.0); PO2 58.1 mmHg (80.0-100.0); pH 7.458 (7.360-7.450); sO2 91.4 % (92.0-98.0)
[2020-12-06] VITALS (26 sets, daily range): BP systolic 111–147; BP diastolic 64–81
--- NOTE | 2020-12-06 00:20 | NUR ---
2013 - SPOKE WITH NAYELY () ABOUT PTS CONDITION AND EVENTS THAT TOOK PLACE TODAY. ALL QUESTIONS WERE ANSWERED AT THAT TIME.
[2020-12-06 05:23] LABS: BE(vivo) 4.5 mmol/L (-2 to +3); HCO3 28.5 mmol/L (22.0-26.0); PO2 65.2 mmHg (80.0-100.0); pH 7.471 (7.360-7.450)
[2020-12-06 05:27] LABS: HEMATOCRIT 29.7 % (42.0-52.0); HEMOGLOBIN 8.8 gm/dL (14.0-18.0); MCH 28.5 pg (26.0-34.0); MCHC 29.6 g/dL (28.0-37.0); RBC 3.08 mil/uL (4.50-6.00); RDW 20.4 % (10.5-14.5); WBC 11.7 thou/uL (4.0-11.0)
[2020-12-06 05:54] LABS: MCV 96.3 fL (80.0-100.0)
[2020-12-06 06:43] LABS: CALCIUM 8.9 mg/dL (8.5-10.1); CREATININE 0.5 mg/dL (0.7-1.3); POTASSIUM 4.6 mmol/L (3.5-5.1)
[2020-12-06 09:49] LABS: BE(vivo) 6.8 mmol/L (-2 to +3); HCO3 31.7 mmol/L (22.0-26.0); PCO2 46.6 mmHg (35.0-45.0); PO2 62.1 mmHg (80.0-100.0); sO2 92.6 % (92.0-98.0)
--- NOTE | 2020-12-06 12:12 | NUR ---
Chart review. Discussed during los and unite rounds. Remains on vent/trach, tpn for nutritional support. Possible try to extubate soon. Cm visited with jade who was at bedside and spoke outside the room, hopeful he can come off the vent. No anticipated dc over the weekend. Will cont following as needed for dc needs.
--- NOTE | 2020-12-06 12:22 | NUR ---
1210- PATIENT EXTUBATED. PLACED ON 10L HFNC AND 80% ON FACE SHIELD. ABLE TO EXPECTORATE SECRETIONS. O2 SATS STABLE ON CURRENT SETTINGS.
[2020-12-06 22:06] LABS: HISTOPLASMA MYCELIAL-CF Negative (Neg:<1:2)
[2020-12-07] VITALS (24 sets, daily range): BP systolic 129–153; BP diastolic 65–87
--- NOTE | 2020-12-07 10:39 | NUR ---
PT IS NOT PROGRESSING TOWARDS DISCHARGE AT THIS TIME, LABILE OXYGENATION NEEDS, NEEDS TO BE SEEN BY SLT IN ORDER TO PROGRESS DIET AND PROVIDE PO HTN MEDS. ONLY REQUEST FROM PT THIS MORNING IS TO GET HIS POLYGRIP FROM HIS , RN HELPED COORDINATING AND PROVIDED UPDATE WELL. ASKED PT HOW HIS STAY COULD BE MORE COMFORTABLE, SOFTER BED AND CALLING , RN DID BOTH. SPOKE W/ ABOUT PLAN OF CARE. NO ACUTE PROCESSES SEEN AT THIS TIME. CONTINUING TO MONITOR
--- NOTE | 2020-12-07 11:51 | NUR ---
0715HRS - PT IN BED RESTING, [id number] WITH APPROPRIATE CONVERSATION. 0900 HRS - ATE 90% OF MEAL
[2020-12-08] VITALS (18 sets, daily range): BP systolic 132–167; BP diastolic 73–106
[2020-12-08 05:19] LABS: CALCIUM 9.7 mg/dL (8.5-10.1); CREATININE 0.6 mg/dL (0.7-1.3); POTASSIUM 4.1 mmol/L (3.5-5.1)
--- NOTE | 2020-12-08 06:15 | NUR ---
Patient requested somthing to help him sleep at HS. Orders for IV benadryl. This was given and patient did sleep a little bit he stated. Heart rate and rhythm stable. Blood pressures stable. Patient continues on 15 liters HF NC and 95% face shield with O2 sats barely 90% intermittently dropping down into the low 80's. Patient wakes and is able to have conversation and reposition self in bed. Pt is not distressed but can become tachypenic at times. U/O adequate. Discussed with patient plan of care and how he would like to proceed with his care being that he is continuing to need increased oxygen, the next thing being bipap or intubation. Patient stated that he doesn't think he will leave the hospital and that perhaps it is time to take a pallative approach. He wants to discuss this all with his today when she comes up to visit. Patient really wanted a drink of water, cold with ice. This was offered and pt did well with swallowing but O2 sats did drop down into the 70's for a bit. Patient does not seem to to be affected adversely with the low O2 sats. Discussed with patient for him to tell us when he is getting tired and he can then decide if he wants to go on the bipap. Patient states understanding of this conversation. discussed with respiratory. Bipap on standby at this time. Am labs drawn and results noted. See documentation on interventions for assessment details. called this evening and gave her update on patient status.
--- NOTE | 2020-12-08 11:29 | NUR ---
ASSUMED CARE OF PATIENT AT 0600. PATIENT WAS ON 15L HFNC AND 95% FACE SHIELD. HIS WOB INCREASED AND HIS SATURATION WAS IN THE MID 80'S. THE PATIENT ASKED FOR BIPAP TO HELP. MEDICATIONS WERE GIVEN AND PATIENT IS NOW RESTING COMFORTABLY IN BED ON FULL FACE MASK BIPAP 16/8 RATE 12 100% SATURATION IS NOW HOLDING AT 93% AND RR HIGH 20/S LOW 30 BPM. WILL CONTINUE TO MONITOR AND ADDRESS NEEDS THEY ARISE.
--- NOTE | 2020-12-08 14:10 | NUR ---
PT IS NOT PROGRESSING TOWARDS DISCHARGE, OVER NIGHT INCREASE OXYGNATION NEEDS WELL DESATTING WITH LONGER TIME TO RECOUP, PT STARTED ON BIAP THIS MORNING, PT TOLERATING OKAY. MORPHINE/ATIVAN ORDERED FOR ANXIETY NEEDS. PT'S HR INCREASINLY FASTER THAN YESTERDAY, TODAY AROUND 110s COMPARED TO 80s YESTERDAY. UNABLE TO GIVE PO HTN MEDICATION AT THIS TIME DUE TO INABILITY FOR SLT EVAL SECONDARY TO OXYGENATION DEAMANDS. WAS CONSULTED FOR GERIATRIC CARE NEEDS. WANTING TO SPEAK WHEN IS HERE BUT HAS NOT CAME BY TODAY AT THIS TIME. PT IS PLEASANT, SEEN SLEEPING ON AND OFF. PT TAKEN BIPAP OFF BY SELF NUMEROUS TIME TODAY, REMINDED BY RT AND STERILE PROCESSING TECH TO USE THE CALL LIGHT FOR ANY NEEDS. VOCALIZES UNDERSTANDING
--- NOTE | 2020-12-08 21:57 | NUR ---
TIME OF PRONOUNCED AT 2023. NAYELY () CALLED. MTN NOTIFIED, ALL QUESTIONS ANSWERED, PT IS A CANDIDATE FOR EYE/TISSUE DONOR. TUFTING SUPERVISOR NOTIFIED. CONSULTED MD'S NOTIFIED. PTS BELONGINGS CATALOGED ON WORKSHEET AND SENT WITH SECURITY. REFER TO WORKSHEET.
== END 2020-12-08 20:24 | DRG 871 ==
LOC: ER 18:27 → 2N 21:22 → ICU 21:22 → EROBS 21:22 → 2N 21:54 → ICU 11-26 13:40
PROVIDERS: Emergency Medicine; Internal Medicine Pulmonary Disease; Nurse Practitioner Family; Pediatrics; Specialist; ADMIT Hospitalist; ATTEND Hospitalist
PROC: 5A09557 Assistance with Respiratory Ventilation, Greater than 96 Consecutive Hours, Continuous Positive Airway Pressure (ICD-10-PCS; 2020-11-26)
PROC: 5A0935A Assistance with Respiratory Ventilation, Less than 24 Consecutive Hours, High Flow/Velocity Cannula (ICD-10-PCS; 2020-11-26)
PROC: 5A0935A Assistance with Respiratory Ventilation, Less than 24 Consecutive Hours, High Flow/Velocity Cannula (ICD-10-PCS; 2020-11-30)
PROC: 5A09357 Assistance with Respiratory Ventilation, Less than 24 Consecutive Hours, Continuous Positive Airway Pressure (ICD-10-PCS; 2020-12-01)
PROC: 5A0935A Assistance with Respiratory Ventilation, Less than 24 Consecutive Hours, High Flow/Velocity Cannula (ICD-10-PCS; 2020-12-01)
PROC: 5A1945Z Respiratory Ventilation, 24-96 Consecutive Hours (ICD-10-PCS; 2020-12-02)
PROC: 5A09357 Assistance with Respiratory Ventilation, Less than 24 Consecutive Hours, Continuous Positive Airway Pressure (ICD-10-PCS; 2020-12-02)
PROC: 0BH18EZ Insertion of Endotracheal Airway into Trachea, Via Natural or Artificial Opening Endoscopic (ICD-10-PCS; 2020-12-02)
PROC: 0B9M8ZX Drainage of Bilateral Lungs, Via Natural or Artificial Opening Endoscopic, Diagnostic (ICD-10-PCS; principal; 2020-12-03)
PROC: 0DJ08ZZ Inspection of Upper Intestinal Tract, Via Natural or Artificial Opening Endoscopic (ICD-10-PCS; principal; 2020-12-03)
PROC: 0BJ08ZZ Inspection of Tracheobronchial Tree, Via Natural or Artificial Opening Endoscopic (ICD-10-PCS; 2020-12-04)
PROC: 0DJ08ZZ Inspection of Upper Intestinal Tract, Via Natural or Artificial Opening Endoscopic (ICD-10-PCS; 2020-12-05)
PROC: 5A0935A Assistance with Respiratory Ventilation, Less than 24 Consecutive Hours, High Flow/Velocity Cannula (ICD-10-PCS; 2020-12-06)
PROC: 5A0935A Assistance with Respiratory Ventilation, Less than 24 Consecutive Hours, High Flow/Velocity Cannula (ICD-10-PCS; 2020-12-07)
PROC: 5A09357 Assistance with Respiratory Ventilation, Less than 24 Consecutive Hours, Continuous Positive Airway Pressure (ICD-10-PCS; 2020-12-08)
PROC: 5A0935A Assistance with Respiratory Ventilation, Less than 24 Consecutive Hours, High Flow/Velocity Cannula (ICD-10-PCS; 2020-12-08)
DX: A41.9 Sepsis, unspecified organism (principal); J18.9 Pneumonia, unspecified organism; R65.21 Severe sepsis with septic shock; J80 Acute respiratory distress syndrome; E43 Unspecified severe protein-calorie malnutrition; N17.9 Acute kidney failure, unspecified; C15.9 Malignant neoplasm of esophagus, unspecified; C78.7 Secondary malignant neoplasm of liver and intrahepatic bile duct; C78.89 Secondary malignant neoplasm of other digestive organs; I50.32 Chronic diastolic (congestive) heart failure; R77.8 Other specified abnormalities of plasma proteins; E78.5 Hyperlipidemia, unspecified; E78.00 Pure hypercholesterolemia, unspecified; I11.0 Hypertensive heart disease with heart failure; K21.9 Gastro-esophageal reflux disease without esophagitis; D69.6 Thrombocytopenia, unspecified; G47.00 Insomnia, unspecified; E55.9 Vitamin D deficiency, unspecified; I25.10 Atherosclerotic heart disease of native coronary artery without angina pectoris; J43.9 Emphysema, unspecified; I27.20 Pulmonary hypertension, unspecified; D64.9 Anemia, unspecified; Z66 Do not resuscitate; Z68.27 Body mass index [BMI] 27.0-27.9, adult; Z87.891 Personal history of nicotine dependence; Z98.42 Cataract extraction status, left eye; Z98.41 Cataract extraction status, right eye; Z79.899 Other long term (current) drug therapy; Z92.21 Personal history of antineoplastic chemotherapy; Z80.0 Family history of malignant neoplasm of digestive organs; Z82.49 Family history of ischemic heart disease and other diseases of the circulatory system; Z83.3 Family history of diabetes mellitus; Z20.822 Contact with and (suspected) exposure to COVID-19
CPT/HCPCS: 10078; 10081; 50455